=== PATIENT | female | born 1990 | race Caucasian/White ===

== ENCOUNTER 2019-04-10 08:32 | Emergency (ER) | payer OTHER ==
[~2019-04-10] VITALS: Ht 162.6 cm; Wt 68.1 kg
[~2019-04-10 08:32] MED LIST: ACET500C5 PO; PREN-93 PO
[2019-04-10 08:34] VITALS: BP 109/61; PULSE 102; RESP 17; Ht 162.6 cm; Wt 68.1 kg
== END 2019-04-10 09:07 | disposition home or self-care (01) ==
LOC: FTE 08:32
DX: O99.513 Diseases of the respiratory system complicating pregnancy, third trimester (principal); J06.9 Acute upper respiratory infection, unspecified; R05 Cough; Z3A.37 37 weeks gestation of pregnancy
CPT/HCPCS: 99282